=== PATIENT | male | born 1965 | race Caucasian/White ===

== ENCOUNTER 2017-09-18 21:20 | Inpatient (IN) | payer BC, OTHER ==
--- NOTE | 2017-09-18 21:41 | PDOC ---
History of Present Illness - General History Source: Patient Exam Limitations: No Limitations - History of Present Illness Initial Comments: 09/18/17 23:02 The patient is a 51 year old male, with a significant past medical history of tobacco use (1ppd), who presents to the emergency department with right sided chest pain with exertion for about 5 days. The patient states he was working outdoors in the cold on Tuesday when he developed a "painful burning" to his chest which was exacerbated with deep breathing at the time. He states the pain has been intermittent since the onset, however, exacerbated while actively doing things. He states he was prompted to come to the ED today when he developed a sharp pain to his right anterior chest after walking up the stairs in his house today. The patient's nephew at bedside reports seeing the patient walk down the steps at home clenching his right chest and states he has "never seen him like that before". The patient denies seeing a physician in many years since his PCP retired. He denies shortness of breath, headache and dizziness. He denies fever, chills, vomit, diarrhea and constipation. He denies dysuria, frequency, urgency and hematuria. Allergies: NKDA Social history: daily tobacco use (1 ppd) <Marisa Krueger - Last Filed: 09/18/17 23:02> <Karlee Ledbetter - Last Filed: 09/19/17 02:32> - General Chief Complaint: Chest Pain Stated Complaint: CHEST PAIN Time Seen by Provider: 09/18/17 21:40 Past History <Marisa Krueger - Last Filed: 09/18/17 23:02> - Suicide/Smoking/Psychosocial Hx Smoking History: Current some day smoker Number of Cigarettes Smoked Daily: 30 Information on smoking cessation initiated: No <Karlee Ledbetter - Last Filed: 09/19/17 02:32> - Past Medical History Allergies/Adverse Reactions: Allergies Allergy/AdvReac Type Severity Reaction Status Date / Time No Known Allergies Allergy Verified 09/18/17 21:36 Review of Systems - Review of Systems Able to Perform ROS?: Yes Comments:: 09/18/17 23:09 GENERAL/CONSTITUTIONAL: No fever or chills. No weakness. HEAD, EYES, EARS, NOSE AND THROAT: No change in vision. No ear pain or discharge. No sore throat. CARDIOVASCULAR: (+) right sided chest pain with exertion. No shortness of breath. RESPIRATORY: No cough, wheezing, or hemoptysis. GASTROINTESTINAL: No nausea, vomiting, diarrhea or constipation. GENITOURINARY: No dysuria, frequency, or change in urination. MUSCULOSKELETAL: No joint or muscle swelling or pain. No neck or back pain. SKIN: No rash NEUROLOGIC: No headache, vertigo, loss of consciousness, or change in strength/ sensation. ENDOCRINE: No increased thirst. No abnormal weight change. HEMATOLOGIC/LYMPHATIC: No anemia, easy bleeding, or history of blood clots. ALLERGIC/IMMUNOLOGIC: No hives or skin allergy. <Marisa Krueger - Last Filed: 09/18/17 23:02> *Physical Exam - Vital Signs Last Vital Signs Temp Pulse Resp BP Pulse Ox 152/92 98 09/18/17 21:34 09/18/17 21:34 - Physical Exam Comments: 09/18/17 23:10 GENERAL: Awake, alert, and fully oriented, in no acute distress HEAD: No signs of trauma EYES: PERRLA, EOMI, sclera anicteric, conjunctiva clear ENT: Auricles normal inspection, hearing grossly normal, nares patent, oropharynx clear without exudates. Moist mucosa NECK: Normal ROM, supple, no lymphadenopathy, JVD, or masses LUNGS: Breath sounds equal, clear to auscultation bilaterally. No wheezes, and no crackles HEART: Regular rate and rhythm, normal S1 and S2, no murmurs, rubs or gallops ABDOMEN: Soft, nontender, normoactive bowel sounds. No guarding, no rebound. No masses EXTREMITIES: Normal range of motion, no edema. No clubbing or cyanosis. No cords, erythema, or tenderness NEUROLOGICAL: Cranial nerves II through XII grossly intact. Normal speech, normal gait SKIN: Warm, Dry, normal turgor, no rashes or lesions noted. <Marisa Krueger - Last Filed: 09/18/17 23:02> - Vital Signs Last Vital Signs Temp Pulse Resp BP Pulse Ox 152/92 98 09/18/17 21:34 09/18/17 21:34 <Karlee Ledbetter - Last Filed: 09/19/17 02:32> ED Treatment Course - LABORATORY CBC & Chemistry Diagram: 09/18/17 23:22 09/18/17 23:22 <Karlee Ledbetter - Last Filed: 09/19/17 02:32> Medical Decision Making - Medical Decision Making 09/19/17 02:09 Patient Name: EDDIE MEDINA THIS IS A PRELIMINARY REPORT FROM [facility] DATE OF SERVICE: 2017-09-19 01:27:19 IMAGES: [id number] EXAM: CT ABDOMEN AND PELVIS without contrast HISTORY: Right-sided pain rule out pancreatitis COMPARISON: None. FINDINGS: No pancreatic enlargement or pancreatic/peripancreatic inflammation. No obvious abnormalities of the liver, gallbladder, spleen, pancreas, or adrenal glands. No urinary tract obstruction. There is sigmoid diverticulosis. No diverticulitis or colitis. Normal appendix visualized. No bowel obstruction free air or free fluid. Overall no acute abnormalities are noted. Small left lobe liver lesion noted probably cyst. Nonspecific groundglass pattern to the lung bases. Could be related to infectious etiology or simply dependent position or chronic airways disease. THIS DOCUMENT HAS BEEN ELECTRONICALLY SIGNED 09/19/17 02:21 Pt comes with epigastric and CP; He has no PMD and he takes no meds. His EKG is NSR with nonspecific t wave changes ?ST depressions laterally. Pt was treated with asa and metoprolol one dose. He complained of worsening CP at a point in the ER, repeat EKG was unchanged from the initial. Pt has elevated trop with normal CPK; pt has elevated lipase. States that he doesn't drink. last drink was on . Pt has ground glass appearance at the base of his lungs. He will be treated with abx. Admit to hospitalist. They can get can get GI, pulm, and cards consults as needed. <Karlee Ledbetter - Last Filed: 09/19/17 02:32> *DC/Admit/Observation/Transfer - Attestations Scribe Attestion: 09/18/17 23:10 Documentation prepared by Marisa Krueger, acting as medical biller for Karlee Ledbetter MD <Marisa Krueger - Last Filed: 09/18/17 23:02> - Discharge Dispostion Admit: Yes <Karlee Ledbetter - Last Filed: 09/19/17 02:32> Diagnosis at time of Disposition: Pancreatitis, Elevated troponin, Bilateral pneumonia - Discharge Dispostion Condition at time of disposition: Guarded
[2017-09-18] MEDS ORDERED: ASPIRIN 81 MG CHEWABLE TABLETS PO ONE (22:31)
[2017-09-18] MEDS ORDERED: METOPROLOL TARTRATE 50 MG TABLET (FP) PO ONE (22:32)
[2017-09-18] MEDS ORDERED: METOPROLOL TARTRATE 50 MG TABLET (FP) ONE (23:25)
[2017-09-18] MEDS ORDERED: ASPIRIN 325 MG TABLET ONE (23:25)
[2017-09-18 23:37] LABS: BASO % 0.5 % (0-2.0); EOS % 0.8 % (0-4.5); HEMATOCRIT 47.4 % (35.4-49); LYMPH % 15.6 % (8-40); MCH 29.1 pg (25.7-33.7); MCHC 33.8 g/dl (32.0-35.9); MEAN CELL VOLUME 86.1 fl (80-96); MEAN PLT VOLUME 8.7 fl (7.5-11.1); MONO % 7.7 % (3.8-10.2); NEUT % 75.4 % (42.8-82.8); PLATELET COUNT 260 K/MM3 (134-434); RBC 5.51 M/mm3 (4.00-5.60); RDW 13.8 % (11.9-15.9); WHITE BLOOD COUNT 19.7 K/mm3 (4.0-10.0)
[2017-09-19 00:01] LABS: ALBUMIN 3.9 g/dl (3.4-5.0); ANION GAP 10 (8-16); BLOOD UREA NITROGEN 17 mg/dL (7-18); CALCIUM 9.2 mg/dL (8.5-10.1); CHLORIDE 104 mmol/L (98-107); CO2 27 mmol/L (21-32); CREATININE 1.2 mg/dL (0.7-1.3); GLUCOSE,RANDOM 137 mg/dL (74-106); POTASSIUM 3.8 mmol/L (3.5-5.1); SGOT/AST 16 U/L (15-37); SGPT/ALT 26 U/L (12-78); SODIUM 141 mmol/L (136-145)
[2017-09-19 00:05] LABS: ALK PHOS 92 U/L (45-117); BILIRUBIN,TOTAL 0.2 mg/dL (0.2-1.0); TOT PROT 7.8 g/dl (6.4-8.2)
[2017-09-19 00:24] LABS: INR 1.01 (0.82-1.09); PROTHROMBIN TIME (PATIENT) 11.4 SEC (9.98-11.88)
[2017-09-19] MEDS ORDERED: morphine CARPU-JECT 2 MG/1 ML DISP.SYRIN IVPUSH ONE (00:48)
[2017-09-19] MEDS ORDERED: morphine CARPU-JECT 10 MG/1 ML DISP.SYRIN ONE (01:27)
[2017-09-19] MEDS ORDERED: CEFTRIAXONE 1,000 MG in DEXTROSE 5%-WATER - 50 ML IVPB ONE (02:07)
[2017-09-19] MEDS ORDERED: CEFTRIAXONE 1 GM/50 ML BAG ONE (02:27)
--- NOTE | 2017-09-19 02:35 | HP ---
CHIEF COMPLAINT: Abdominal pain , right chest pain PCP:Mark ramos HISTORY OF PRESENT ILLNESS: 51 year oldsmoker male with no PMH presented to the ED with 5 days H/o abdominal pain and right chest pain. The abdominal pain started on Tuesday while he was working, med epigastric 2/10, local not related to food , no associated with N/V/D/C. The pain assocaited with right chest pain 10/10 radiated to his right shoulder and arm bit,worsening when he lay on right side. He reports numbness and tingling in his right arm and fingers. patient denies dyspnea, orthopnea, but reports chronic cough with phillips phlegm due to smoking. Patient denies any fever, chills, dizziness, light headedness, dysuria, hematuria, frequency or urgency. ER course was notable for: (1)CXR (2)CT abdomen (3)Trop 0.09, EKG no st,t wave changes , Ceftriaxone 1 gm IVBP , Morphine 2 gm IVBP Recent Travel:denies PAST MEDICAL HISTORY: denies PAST SURGICAL HISTORY: Right Knee ACl, Tonsillectomy Social History: Smokin-2 PPD since age of 22 Alcohol:denies now, was drinking 6 pack of beer average 20 years ago Drugs: Marijuana smoking Family History: Allergies No Known Allergies Allergy (Verified 09/18/17 21:36) HOME MEDICATIONS: REVIEW OF SYSTEMS CONSTITUTIONAL: Absent: fever, chills, diaphoresis, generalized weakness, malaise, loss of appetite, weight change HEENT: Absent: rhinorrhea, nasal congestion, throat pain, throat swelling, difficulty swallowing, mouth swelling, ear pain, eye pain, visual changes CARDIOVASCULAR: Absent: right chest pain, syncope, palpitations, irregular heart rate, lightheadedness, peripheral edema RESPIRATORY: Absent: cough, shortness of breath, dyspnea with exertion, orthopnea, wheezing, stridor, hemoptysis GASTROINTESTINAL: Absent: abdominal pain, abdominal distension, nausea, vomiting, diarrhea, constipation, melena, hematochezia GENITOURINARY: Absent: dysuria, frequency, urgency, hesitancy, hematuria, flank pain, genital pain MUSCULOSKELETAL: Absent: myalgia, arthralgia, joint swelling, back pain, neck pain SKIN: Absent: rash, itching, pallor HEMATOLOGIC/IMMUNOLOGIC: Absent: easy bleeding, easy bruising, lymphadenopathy, frequent infections ENDOCRINE: Absent: unexplained weight gain, unexplained weight loss, heat intolerance, cold intolerance NEUROLOGIC: Absent: headache, focal weakness or paresthesias, dizziness, unsteady gait, seizure, mental status changes, bladder or bowel incontinence PSYCHIATRIC: Absent: anxiety, depression, suicidal or homicidal ideation, hallucinations. PHYSICAL EXAMINATION Vital Signs - 24 hr 09/18/17 21:34 Blood Pressure 152/92 O2 Sat by Pulse 98 Oximetry (%) GENERAL: Awake, alert, and fully oriented, in no acute distress. HEAD: Normal with no signs of trauma. EYES: Pupils equal, round and reactive to light, extraocular movements intact, sclera anicteric, conjunctiva clear EARS, NOSE, THROAT: Ears normal, nares patent, oropharynx clear without exudates. Moist mucous membranes. NECK: Normal range of motion, supple LUNGS: Breath sounds equal, clear to auscultation bilaterally. No wheezes, and no crackles. No accessory muscle use. HEART: Regular rate and rhythm, normal S1 and S2 without murmur, rub or gallop. ABDOMEN: Soft, nontender, not distended, normoactive bowel sounds, no guarding, no rebound, MUSCULOSKELETAL: Normal range of motion at all joints. No bony deformities or tenderness. No CVA tenderness. UPPER EXTREMITIES: 2+ pulses, warm, well-perfused. No cyanosis. No clubbing. No peripheral edema. LOWER EXTREMITIES: 2+ pulses, warm, well-perfused. No calf tenderness. No peripheral edema. NEUROLOGICAL: no focal deficit , Normal speech. Normal gait. Laboratory Results - last 24 hr 09/18/17 09/18/17 09/18/17 23:22 23:22 23:22 WBC 19.7 H RBC 5.51 Hgb 16.0 Hct 47.4 MCV 86.1 MCH 29.1 MCHC 33.8 RDW 13.8 Plt Count 260 MPV 8.7 Neutrophils % 75.4 Lymphocytes % 15.6 Monocytes % 7.7 Eosinophils % 0.8 Basophils % 0.5 PT with INR 11.40 INR 1.01 PTT (Actin FS) 32.7 Sodium Potassium Chloride Carbon Dioxide Anion Gap BUN Creatinine Creat Clearance w eGFR Random Glucose Calcium Total Bilirubin AST ALT Alkaline Phosphatase Creatine Kinase Troponin I Total Protein Albumin Lipase 09/18/17 09/18/17 23:22 23:22 WBC RBC Hgb Hct MCV MCH MCHC RDW Plt Count MPV Neutrophils % Lymphocytes % Monocytes % Eosinophils % Basophils % PT with INR INR PTT (Actin FS) Sodium 141 Potassium 3.8 Chloride 104 Carbon Dioxide 27 Anion Gap 10 BUN 17 Creatinine 1.2 Creat Clearance w eGFR > 60 Random Glucose 137 H Calcium 9.2 Total Bilirubin 0.2 AST 16 ALT 26 Alkaline Phosphatase 92 Creatine Kinase 90 Troponin I 0.09 H Total Protein 7.8 Albumin 3.9 Lipase 1662 H Current Medications Lactated Ringer's (Lactated Ringers Solution) 1,000 ml in 1,000 mls @ 200 mls/ hr IV ASDIR PALOMA CEFTRIAXONE 1 G/50 ML PREMIX (Ceftriaxone 1 Gm-D5w Bag) 50 mls @ 100 mls/hr IVPB DAILY PALOMA Morphine Sulfate (Morphine Injection -) 2 mg IVPUSH Q4H PRN PRN Reason: PAIN CBC, BMP 09/18/17 23:22 09/18/17 23:22 CT ABD/PELVIS: No acute process EKG: NSR, Non-specific St-t changes CXR: No Acute Process ASSESSMENT/PLAN: Mr. still is 51 year old male smoker with no PMHX presented to ED with 5 days H/O abdominal pain without N/V , associated with atypical chest pain was found to have Acute pancreatitis . Admitted to med-surg for further evaluation and treatment # Acute pancreatitis * elevated Lipase 1662 * CT abdomen with no pancreatic enlargement, diverticulosis without diverticulitis * NPO * IV fluids ringer lactate 200CC/hr * ABX ceftriaxone 1 gm daily * Pain control IV morphine 2 gm Q 4hr PRN # Atypical Chest pain * Unlikely [place] , most likely referral pain * Trend Trop, first one 0.09 likely demand ischemia * EKG No ST, T wave changes, repeat in AM * ASA 325 in ED * BB Metoprolol 50 mg IVBP in ED * Morphine for pain * CXR negative * CT shows chronic ground glass obaciities # Tobacco use * counselled aout smoking cessation * Nicotine patches PRN # Elevated BP * Monitor in multiple visits and condition * follow up as out patient * start on meds if continue to be elevated # FEN * IV fluids RL @ 200 CC/Hr * E: WNL * N: NPO, consider Low fat ,low residue soft diet if no pain after 48 hours and Lipase subsided # Proph * DVT : SCDs, early ambulation * GI: no need # Dispo * Admit to tele Visit type - Emergency Visit Emergency Visit: Yes ED Registration Date: 09/19/17 Care time: The patient presented to the Emergency Department on the above date and was hospitalized for further evaluation of their emergent condition. - New Patient This patient is new to me today: Yes Date on this admission: 09/19/17 - Critical Care Critical Care patient: No
--- NOTE | 2017-09-19 02:45 | PN ---
Teaching Attending Note Name of Resident: Mark Escobar ATTENDING PHYSICIAN STATEMENT I saw and evaluated the patient. I reviewed the resident's note and discussed the case with the resident. I agree with the resident's findings and plan as documented. SUBJECTIVE: 51 M with pmhx of tobacco use (1 PPD0 who presents with chest pain on the right side. States chest pain is burning in nature and worse with inspiration. Noted sharp pain as he was climbing stairs earlier today. No shortness of breath. No fevers or chills. Also wit associated abdominal pain, located on his left sided. States pain was intermittent and has since subsided. OBJECTIVE: Physical: VS: Vital Signs Period Temp Pulse Resp BP Sys/Waller Pulse Ox Last 24 Hr 152/92 98 Tem: HR: GEN: NAD, resting in bed, able to speak full sentences HEENT: NCAT, PERRL, throat without erythema or exudates CARD: RRR S1, S2 RESP: CTAB ABD: BSx4, NTD to palpation EXT: - C/C/E CBCD WBC 19.7 K/mm3 (4.0-10.0) H 09/18/17 23:22 RBC 5.51 M/mm3 (4.00-5.60) 09/18/17 23:22 Hgb 16.0 GM/dL (11.7-16.9) 09/18/17 23:22 Hct 47.4 % (35.4-49) 09/18/17 23:22 MCV 86.1 fl (80-96) 09/18/17 23:22 MCHC 33.8 g/dl (32.0-35.9) 09/18/17 23:22 RDW 13.8 % (11.9-15.9) 09/18/17 23:22 Plt Count 260 K/MM3 (134-434) 09/18/17 23:22 MPV 8.7 fl (7.5-11.1) 09/18/17 23:22 CMP Sodium 141 mmol/L (136-145) 09/18/17 23:22 Potassium 3.8 mmol/L (3.5-5.1) 09/18/17 23:22 Chloride 104 mmol/L (98-107) 09/18/17 23:22 Carbon Dioxide 27 mmol/L (21-32) 09/18/17 23:22 Anion Gap 10 (8-16) 09/18/17 23:22 BUN 17 mg/dL (7-18) 09/18/17 23:22 Creatinine 1.2 mg/dL (0.7-1.3) 09/18/17 23:22 Creat Clearance w eGFR > 60 (>60) 09/18/17 23:22 Random Glucose 137 mg/dL (74-106) H 09/18/17 23:22 Calcium 9.2 mg/dL (8.5-10.1) 09/18/17 23:22 Total Bilirubin 0.2 mg/dL (0.2-1.0) 09/18/17 23:22 AST 16 U/L (15-37) 09/18/17 23:22 ALT 26 U/L (12-78) 09/18/17 23:22 Alkaline Phosphatase 92 U/L (45-117) 09/18/17 23:22 Total Protein 7.8 g/dl (6.4-8.2) 09/18/17 23:22 Albumin 3.9 g/dl (3.4-5.0) 09/18/17 23:22 CARDIAC ENZYMES Creatine Kinase 90 IU/L (39-308) 09/18/17 23:22 Troponin I 0.09 ng/ml (0.00-0.05) H 09/18/17 23:22 CT ABD/PELVIS: No acute process EKG: NSR, Non-specific St-t changes CXR: No Acute Process ASSESSMENT AND PLAN: 51 M who presents with atypical chest pain and abdominal pain, being admitted for acute pancreatitis 1.) Acute Pancreatitis - NPO - IVF - Pain control 2.) Atypical Chest Pain - Possibly referred pain - Troponin elevation most likely due to demand - Trend trop/ekg - ASA given in ED 3.) Tobacco Use - Advised on smoking cessation 4.) DVT Ppx - Ambulates - SCDs Place in [facility]-S[facility]
[2017-09-19] MEDS ORDERED: morphine CARPU-JECT 10 MG/1 ML DISP.SYRIN IVPUSH PRN (03:37)
[2017-09-19 04:41] VITALS: BMI 36.9
[2017-09-19] MEDS ORDERED: HEPARIN NA (PORCINE) 5,000 UNITS/ML 1ML VIAL SQ SCH (06:00)
[2017-09-19 07:04] LABS: BASO % 0.4 % (0-2.0); EOS % 2.1 % (0-4.5); HEMATOCRIT 44.2 % (35.4-49); HEMOGLOBIN 14.5 GM/dL (11.7-16.9); LYMPH % 32.4 % (8-40); MCH 28.3 pg (25.7-33.7); MCHC 32.8 g/dl (32.0-35.9); MEAN CELL VOLUME 86.3 fl (80-96); MEAN PLT VOLUME 8.6 fl (7.5-11.1); MONO % 8.4 % (3.8-10.2); NEUT % 56.7 % (42.8-82.8); PLATELET COUNT 219 K/MM3 (134-434); RBC 5.12 M/mm3 (4.00-5.60); WHITE BLOOD COUNT 15.6 K/mm3 (4.0-10.0)
[2017-09-19 07:14] LABS: ALBUMIN 3.5 g/dl (3.4-5.0); ALK PHOS 77 U/L (45-117); AMYLASE 77 U/L (25-115); ANION GAP 8 (8-16); BILIRUBIN,TOTAL 0.3 mg/dL (0.2-1.0); BLOOD UREA NITROGEN 21 mg/dL (7-18); CALCIUM 8.4 mg/dL (8.5-10.1); CHLORIDE 104 mmol/L (98-107); CO2 26 mmol/L (21-32); CREATININE 0.9 mg/dL (0.7-1.3); GLUCOSE,RANDOM 86 mg/dL (74-106); LIPASE 197 U/L (73-393); SGOT/AST 13 U/L (15-37); SGPT/ALT 27 U/L (12-78); SODIUM 138 mmol/L (136-145); TOT PROT 6.7 g/dl (6.4-8.2)
[2017-09-19 08:28] LABS: CHOLESTEROL 232 mg/dL (50-200); TRIGLYCERIDES 248 mg/dL (35-160)
[2017-09-19 08:33] LABS: HDL CHOLESTEROL 35 mg/dL (40-60); LDL CHOLESTEROL (ONLY SJRH) 178 mg/dL (5-100)
[2017-09-19 08:34] LABS: AMYLASE 186 U/L (25-115)
[2017-09-19] MEDS: HEPARIN NA (PORCINE) 5,000 UNITS/ML 1ML VIAL SQ SCH ×3 (09:51→21:33)
[2017-09-19] MEDS: NICOTINE 21 MG/24 HOURS TOPICAL PATCH TD SCH (09:52)
[2017-09-19] MEDS ORDERED: CEFTRIAXONE 1 G/50 ML PREMIX 50 ML IVPB SCH (10:00)
--- NOTE | 2017-09-19 11:31 | CON.CARD ---
Consult Consult Specialty:: Cardiology Referred by:: Hospitalist Medicine Reason for Consultation:: Demand ischemia - History of Present Illness Chief Complaint: Chest pain History of Present Illness: 51 M with pmhx of tobacco use (1 PPD) presented with chest pain on the right side. States chest pain is sharp and worse with inspiration and associated left- sided abd pain all since resolved as pancreatitis improves. Denies shortness of breath, fevers or chills, nausea, emesis, near or syncope, palpitations, orthopnea, PND or LE edema, he feels hungry. - History Source History Provided By: Patient Limitations to Obtaining History: No Limitations - Alcohol/Substance Use Hx Alcohol Use: No - Smoking History Smoking history: Current some day smoker Aproximately how many cigarettes per day: 30 Home Medications - Allergies Allergies/Adverse Reactions: Allergies Allergy/AdvReac Type Severity Reaction Status Date / Time No Known Allergies Allergy Verified 09/18/17 21:36 - Home Medications Home Medications: Ambulatory Orders NK [No Known Home Medication] 09/19/17 Review of Systems - Review of Systems Cardiovascular: reports: Chest Pain Gastrointestinal: reports: Abdominal Pain Vital Signs: Vital Signs Temperature 98.0 F 09/19/17 06:00 Pulse Rate 69 09/19/17 06:00 Respiratory Rate 20 09/19/17 06:00 Blood Pressure 122/72 09/19/17 06:00 O2 Sat by Pulse Oximetry (%) 98 09/19/17 04:34 Constitutional: Yes: No Distress, Calm Neck: Yes: Supple Respiratory: Yes: Regular, CTA Bilaterally Gastrointestinal: Yes: Soft, Hypoactive Bowel Sounds Cardiovascular: Yes: Regular Rate and Rhythm JVD: No Carotid Bruit: No Heart Sounds: Yes: S1, S2 Edema: No - Other Data Labs, Other Data: CBC, BMP 09/19/17 06:10 09/19/17 06:10 INR, PTT INR 1.01 (0.82-1.09) 09/18/17 23:22 Troponin, BNP 09/18/17 09/19/17 09/19/17 23:22 05:00 06:10 Troponin I 0.09 H 0.31 H D 0.35 H Troponin, BNP 09/18/17 09/19/17 09/19/17 23:22 05:00 06:10 Troponin I 0.09 H 0.31 H D 0.[address]-T changes Imaging - Results Chest X-ray: Report Reviewed (NAD) Ultrasound: Report Reviewed (Fatty liver vs hepatocellular disease, no gallstones) Problem List - Problems (1) Atypical chest pain Code(s): R07.89 - OTHER CHEST PAIN (2) Hyperlipidemia Code(s): E78.5 - HYPERLIPIDEMIA, UNSPECIFIED Qualifiers: Hyperlipidemia type: pure hypercholesterolemia Qualified Code(s): E78.00 - Pure hypercholesterolemia, unspecified; E78.0 - Pure hypercholesterolemia (3) Elevated troponin Code(s): R74.8 - ABNORMAL LEVELS OF OTHER SERUM ENZYMES (4) Pancreatitis Code(s): K85.90 - ACUTE PANCREATITIS WITHOUT NECROSIS OR INFECTION, UNSP Qualifiers: Chronicity: acute Pancreatitis type: idiopathic Acute pancreatitis complication: no infection or necrosis Qualified Code(s): K85.00 - Idiopathic acute pancreatitis without necrosis or infection (5) Tobacco abuse Code(s): Z72.0 - TOBACCO USE (6) Demand ischemia Code(s): I24.8 - OTHER FORMS OF ACUTE ISCHEMIC HEART DISEASE (7) Leukocytosis Code(s): D72.829 - ELEVATED WHITE BLOOD CELL COUNT, UNSPECIFIED Qualifiers: Leukocytosis type: unspecified Qualified Code(s): D72.829 - Elevated white blood cell count, unspecified Assessment/Plan 1. Atypical chest pain syndrome referable to acute pancreatitis since improving 2. Demand ischemia referable to above 3. Leukocytosis referable to above 4. Tobacco abuse 5. Hyperlipidemia P:1. Trend trops to document peak, f/u echocardiogram to assess ventricular and valve fxn, check TSH 2. Start statin once pancreatitis resolves, f/u abd/pelvic CT report, bowel rest , hydration, analgesia as needed, empiric abx course, GI eval 3. Tobacco cessation, DVT prophylaxis 4. Thank you for consultative opportunity
--- NOTE | 2017-09-19 12:06 | CON.GI ---
Consult Consult Specialty:: GI - History of Present Illness History of Present Illness: A healthy 51 yom with acute onset chest pain on /off for 5 days prior to visit to ED. In ED carioac etiology was ruloed out however he was found to have elevated lipase. Admitted with Dx of acute pancreatitis. Smokes tobacco. No history of pancreatitis, alcohol abuse, gallstone disease, or biliary sludge. Denies recent exposure to ill, new medications, OTC, or herbals. Deneis dysphagia, odynophagia, melena, hematochezia, hematemesis, GERD-like symptoms. NO weight loss, jaundice. No family history of pancreattis, or any other GI- related conditions. - History Source History Provided By: Patient - Alcohol/Substance Use Hx Alcohol Use: No - Smoking History Smoking history: Current some day smoker Aproximately how many cigarettes per day: 30 Home Medications - Allergies Allergies/Adverse Reactions: Allergies Allergy/AdvReac Type Severity Reaction Status Date / Time No Known Allergies Allergy Verified 09/18/17 21:36 - Home Medications Home Medications: Ambulatory Orders NK [No Known Home Medication] 09/19/17 Family Disease History - Family Disease History Family Disease History: Other: Mother (thyroid cancer, kidney cancer) Review of Systems Findings/Remarks: Please refer to H&P, HPI Physical Exam-GI Vital Signs: Vital Signs Temperature 98.0 F 09/19/17 06:00 Pulse Rate 69 09/19/17 06:00 Respiratory Rate 20 09/19/17 06:00 Blood Pressure 122/72 09/19/17 06:00 O2 Sat by Pulse Oximetry (%) 98 09/19/17 04:34 Constitutional: Yes: Well Nourished, No Distress, Calm Eyes: Yes: Conjunctiva Clear HENT: Yes: Atraumatic Neck: Yes: Supple Cardiovascular: Yes: Regular Rate and Rhythm Respiratory: Yes: Regular Gastrointestinal Inspection: No: Ascites, Distention ...Auscultate: Yes: Normoactive Bowel Sounds ...Palpate: Yes: Soft, Splenomegaly. No: Mass, Tenderness, Tenderness, Epigastium, Tenderness, Rebound Neurological: Yes: Alert, Oriented Labs: CBC, BMP 09/19/17 06:10 09/19/17 06:10 INR, PTT INR 1.01 (0.82-1.09) 09/18/17 23:22 Laboratory Tests 09/18/17 09/18/17 09/18/17 23:22 23:22 23:22 WBC 19.7 H RBC 5.51 Hgb 16.0 Hct 47.4 MCV 86.1 MCH 29.1 MCHC 33.8 RDW 13.8 Plt Count 260 MPV 8.7 Neutrophils % 75.4 Lymphocytes % 15.6 Monocytes % 7.7 Eosinophils % 0.8 Basophils % 0.5 PT with INR 11.40 INR 1.01 PTT (Actin FS) 32.7 Sodium Potassium Chloride Carbon Dioxide Anion Gap BUN Creatinine Creat Clearance w eGFR Random Glucose Calcium Total Bilirubin AST ALT Alkaline Phosphatase Creatine Kinase Troponin I Total Protein Albumin Triglycerides Cholesterol Total LDL Cholesterol HDL Cholesterol Total Amylase Lipase 09/18/17 09/18/17 09/19/17 23:22 23:22 05:00 WBC RBC Hgb Hct MCV MCH MCHC RDW Plt Count MPV Neutrophils % Lymphocytes % Monocytes % Eosinophils % Basophils % PT with INR INR PTT (Actin FS) Sodium 141 Potassium 3.8 Chloride 104 Carbon Dioxide 27 Anion Gap 10 BUN 17 Creatinine 1.2 Creat Clearance w eGFR > 60 Random Glucose 137 H Calcium 9.2 Total Bilirubin 0.2 AST 16 ALT 26 Alkaline Phosphatase 92 Creatine Kinase 90 Troponin I 0.09 H 0.31 H D Total Protein 7.8 Albumin 3.9 Triglycerides Cholesterol Total LDL Cholesterol HDL Cholesterol Total Amylase 186 H Lipase 1662 H 09/19/17 09/19/17 09/19/17 06:10 06:10 06:10 WBC 15.6 H RBC 5.12 Hgb 14.5 Hct 44.2 MCV 86.3 MCH 28.3 MCHC 32.8 RDW 14.0 Plt Count 219 MPV 8.6 Neutrophils % 56.7 D Lymphocytes % 32.4 D Monocytes % 8.4 Eosinophils % 2.1 D Basophils % 0.4 PT with INR INR PTT (Actin FS) Sodium 138 Potassium 4.0 Chloride 104 Carbon Dioxide 26 Anion Gap 8 BUN 21 H D Creatinine 0.9 D Creat Clearance w eGFR > 60 Random Glucose 86 D Calcium 8.4 L Total Bilirubin 0.3 D AST 13 L ALT 27 Alkaline Phosphatase 77 Creatine Kinase Troponin I 0.35 H Total Protein 6.7 Albumin 3.5 Triglycerides Cancelled 248 H Cholesterol Cancelled 232 H Total LDL Cholesterol Cancelled 178 H HDL Cholesterol Cancelled 35 L Total Amylase 77 D Lipase 197 Imaging - Results Cat Scan: Report Reviewed Problem List - Problems (1) Pancreatitis Code(s): K85.90 - ACUTE PANCREATITIS WITHOUT NECROSIS OR INFECTION, UNSP Qualifiers: Chronicity: acute Pancreatitis type: idiopathic Acute pancreatitis complication: no infection or necrosis Qualified Code(s): K85.00 - Idiopathic acute pancreatitis without necrosis or infection (2) Tobacco abuse Code(s): Z72.0 - TOBACCO USE Assessment/Plan First episode of acute pancreatis in a tobacco smoker with dyslipidemia. No other apparent risk factors. Non-toxic, not in distress, or discomfort. Mildly dehydrated with leukocytosis. No other organ systems involved. US of the liver IVF NS @ 200 cc/hr Pain and antiemetics PRN CBC, CMP, dir, bili in AM CMV, EBV, IgG4 discussed with the patient
--- NOTE | 2017-09-19 12:22 | EKG ---
Test Reason : Blood Pressure : / mmHG Vent. Rate : 090 BPM Atrial Rate : 090 BPM P-R Int : 162 ms QRS Dur : 078 ms QT Int : 352 ms P-R-T Axes : 060 050 083 degrees QTc Int : 430 ms NORMAL SINUS RHYTHM NONSPECIFIC ST AND T WAVE ABNORMALITY ABNORMAL ECG NO PREVIOUS ECGS AVAILABLE Confirmed by MELISSA ALFARO, JAIME ([id number]) on 09/19/2017 12:22:01 PM Referred By: Confirmed By:JAIME TORRES MD
--- NOTE | 2017-09-19 12:44 | EKG ---
Test Reason : Blood Pressure : / mmHG Vent. Rate : 078 BPM Atrial Rate : 078 BPM P-R Int : 160 ms QRS Dur : 094 ms QT Int : 364 ms P-R-T Axes : 049 042 035 degrees QTc Int : 414 ms NORMAL SINUS RHYTHM NONSPECIFIC ST ABNORMALITY ABNORMAL ECG NO PREVIOUS ECGS AVAILABLE Confirmed by JAIME TORRES MD ([id number]) on 09/19/2017 12:44:14 PM Referred By: Confirmed By:JAIME TORRES MD
--- NOTE | 2017-09-19 15:42 | PN ---
<Walker Pickens - Last Filed: 09/19/17 15:44> Physical Exam: SUBJECTIVE: Patient seen and examined. No acute events overnight. Pt denies n/v/d/c and abdominal pain this am. He has no subjective complaints and wants to know when he can go home. He has been tolerating water well. OBJECTIVE: Vital Signs Period Temp Pulse Resp BP Sys/Waller Pulse Ox Last 24 Hr 97.5 F-98.1 F 65-84 15-20 122-160/72-92 98-98 GENERAL: The patient is awake, alert, and fully oriented, in no acute distress. HEENT: NC, AT NECK: Trachea midline, full range of motion, supple. LUNGS: Breath sounds equal, clear to auscultation bilaterally, no wheezes, no crackles, no accessory muscle use. HEART: Regular rate and rhythm, S1, S2 without murmur, rub or gallop. ABDOMEN: Soft, nontender, nondistended, normoactive bowel sounds, no guarding, no rebound, no hepatosplenomegaly, no masses. EXTREMITIES: 2+ pulses, warm, well-perfused, no edema. NEUROLOGICAL: Cranial nerves II through XII grossly intact. Normal speech, gait not observed. Laboratory Results - last 24 hr 09/18/17 09/18/17 09/18/17 23:22 23:22 23:22 WBC 19.7 H RBC 5.51 Hgb 16.0 Hct 47.4 MCV 86.1 MCH 29.1 MCHC 33.8 RDW 13.8 Plt Count 260 MPV 8.7 Neutrophils % 75.4 Lymphocytes % 15.6 Monocytes % 7.7 Eosinophils % 0.8 Basophils % 0.5 PT with INR 11.40 INR 1.01 PTT (Actin FS) 32.7 Sodium Potassium Chloride Carbon Dioxide Anion Gap BUN Creatinine Creat Clearance w eGFR Random Glucose Calcium Total Bilirubin AST ALT Alkaline Phosphatase Creatine Kinase Troponin I Total Protein Albumin Triglycerides Cholesterol Total LDL Cholesterol HDL Cholesterol Total Amylase Lipase TSH 09/18/17 09/18/17 09/19/17 23:22 23:22 05:00 WBC RBC Hgb Hct MCV MCH MCHC RDW Plt Count MPV Neutrophils % Lymphocytes % Monocytes % Eosinophils % Basophils % PT with INR INR PTT (Actin FS) Sodium 141 Potassium 3.8 Chloride 104 Carbon Dioxide 27 Anion Gap 10 BUN 17 Creatinine 1.2 Creat Clearance w eGFR > 60 Random Glucose 137 H Calcium 9.2 Total Bilirubin 0.2 AST 16 ALT 26 Alkaline Phosphatase 92 Creatine Kinase 90 Troponin I 0.09 H 0.31 H D Total Protein 7.8 Albumin 3.9 Triglycerides Cholesterol Total LDL Cholesterol HDL Cholesterol Total Amylase 186 H Lipase 1662 H TSH 2.81 09/19/17 09/19/17 09/19/17 05:10 06:10 06:10 WBC 15.6 H RBC 5.12 Hgb 14.5 Hct 44.2 MCV 86.3 MCH 28.3 MCHC 32.8 RDW 14.0 Plt Count 219 MPV 8.6 Neutrophils % 56.7 D Lymphocytes % 32.4 D Monocytes % 8.4 Eosinophils % 2.1 D Basophils % 0.4 PT with INR INR PTT (Actin FS) Sodium Potassium Chloride Carbon Dioxide Anion Gap BUN Creatinine Creat Clearance w eGFR Random Glucose Calcium Total Bilirubin AST ALT Alkaline Phosphatase Creatine Kinase Troponin I Total Protein Albumin Triglycerides Cancelled Cholesterol Cancelled Total LDL Cholesterol Cancelled HDL Cholesterol Cancelled Total Amylase Lipase TSH Cancelled 09/19/17 09/19/17 06:10 12:55 WBC RBC Hgb Hct MCV MCH MCHC RDW Plt Count MPV Neutrophils % Lymphocytes % Monocytes % Eosinophils % Basophils % PT with INR INR PTT (Actin FS) Sodium 138 Potassium 4.0 Chloride 104 Carbon Dioxide 26 Anion Gap 8 BUN 21 H D Creatinine 0.9 D Creat Clearance w eGFR > 60 Random Glucose 86 D Calcium 8.4 L Total Bilirubin 0.3 D AST 13 L ALT 27 Alkaline Phosphatase 77 Creatine Kinase Troponin I 0.35 H 0.41 H Total Protein 6.7 Albumin 3.5 Triglycerides 248 H Cholesterol 232 H Total LDL Cholesterol 178 H HDL Cholesterol 35 L Total Amylase 77 D Lipase 197 TSH Active Medications Generic Name Dose Route Start Last Admin Trade Name Freq PRN Reason Stop Dose Admin Heparin Sodium (Porcine) 5,000 unit 09/19/17 07:45 09/19/17 09:51 Heparin - SQ 5,000 unit TID PALOMA Administration Lactated Ringer's 1,000 ml in 1,000 mls @ 200 mls/hr 09/19/17 03:45 Lactated Ringers Solution IV ASDIR PALOMA Morphine Sulfate 2 mg 09/19/17 03:37 Morphine Injection - IVPUSH Q4H PRN PAIN Nicotine 21 mg 09/19/17 10:00 09/19/17 09:52 Nicoderm Patch - TD 21 mg DAILY PALOMA Administration CT abdomen/pelvis: negative for any acute abnormalities Abdomen US: mild fatty infiltration of liver vs. hepatocellular disease. No cholelithiasis or CBD dilation ASSESSMENT/PLAN: 51M w/ no PMH who presented to the ED with acute abdominal pain and right-sided chest pain, admitted for acute pancreatitis. # Acute pancreatitis- improving, etiology unclear * Lipase: 1662 --> 197 * full liquids now, advance diet as tolerated * IV fluids- ringer lactate 200CC/hr * morphine discontinued as pain is well controlled off of it * motrin for pain * per GI, f/u CMV, EBV, and IgG4 labs for etiology # Atypical Chest pain * referred pain vs. ACS * trops: 0.09 --> 0.31 --> 0.41 * EKG No ST, T wave changes, f/u repeat EKG * per cards, trend trop and f/u echo. start statin after pancreatitis resolves. * CXR: chronic degenerative changes with wedging # Tobacco use * counselled about smoking cessation * Nicotine patches PRN # Elevated BP * as high as 160/91 today * Monitor in multiple visits and condition * follow up as outpatient # FEN/ppx * IV fluids RL @ 200 CC/Hr * E: WNL * N: full liquids * DVT: heparin * GI: no need # Dispo * home pending ability to tolerate regular diet Case discussed with attending, Dr. Cuadra. -Walker Pickens MD PGY1 Visit type - Emergency Visit Emergency Visit: Yes ED Registration Date: 09/19/17 Care time: The patient presented to the Emergency Department on the above date and was hospitalized for further evaluation of their emergent condition. - New Patient This patient is new to me today: Yes Date on this admission: 09/19/17 - Critical Care Critical Care patient: No <Анна Cuadra - Last Filed: 09/19/17 18:41> Physical Exam: SUBJECTIVE: Patient seen and examined Vital Signs Temperature 98.0 F 09/19/17 13:47 Pulse Rate 65 09/19/17 13:47 Respiratory Rate 15 09/19/17 13:47 Blood Pressure 160/91 09/19/17 13:47 O2 Sat by Pulse Oximetry (%) 98 09/19/17 09:00 CBCD WBC 15.6 K/mm3 (4.0-10.0) H 09/19/17 06:10 RBC 5.12 M/mm3 (4.00-5.60) 09/19/17 06:10 Hgb 14.5 GM/dL (11.7-16.9) 09/19/17 06:10 Hct 44.2 % (35.4-49) 09/19/17 06:10 MCV 86.3 fl (80-96) 09/19/17 06:10 MCHC 32.8 g/dl (32.0-35.9) 09/19/17 06:10 RDW 14.0 % (11.9-15.9) 09/19/17 06:10 Plt Count 219 K/MM3 (134-434) 09/19/17 06:10 MPV 8.6 fl (7.5-11.1) 09/19/17 06:10 CMP Sodium 138 mmol/L (136-145) 09/19/17 06:10 Potassium 4.0 mmol/L (3.5-5.1) 09/19/17 06:10 Chloride 104 mmol/L (98-107) 09/19/17 06:10 Carbon Dioxide 26 mmol/L (21-32) 09/19/17 06:10 Anion Gap 8 (8-16) 09/19/17 06:10 BUN 21 mg/dL (7-18) H D 09/19/17 06:10 Creatinine 0.9 mg/dL (0.7-1.3) D 09/19/17 06:10 Creat Clearance w eGFR > 60 (>60) 09/19/17 06:10 Random Glucose 86 mg/dL (74-106) D 09/19/17 06:10 Calcium 8.4 mg/dL (8.5-10.1) L 09/19/17 06:10 Total Bilirubin 0.3 mg/dL (0.2-1.0) D 09/19/17 06:10 AST 13 U/L (15-37) L 09/19/17 06:10 ALT 27 U/L (12-78) 09/19/17 06:10 Alkaline Phosphatase 77 U/L (45-117) 09/19/17 06:10 Total Protein 6.7 g/dl (6.4-8.2) 09/19/17 06:10 Albumin 3.5 g/dl (3.4-5.0) 09/19/17 06:10 CARDIAC ENZYMES Creatine Kinase 90 IU/L (39-308) 09/18/17 23:22 Troponin I 0.41 ng/ml (0.00-0.05) H 09/19/17 12:55 Current Medications Generic Name Dose Route Start Last Admin Trade Name Dusty PRN Reason Stop Dose Admin Heparin Sodium (Porcine) 5,000 unit 09/19/17 07:45 09/19/17 16:03 Heparin - SQ 5,000 unit TID PALOMA Administration Lactated Ringer's 1,000 ml in 1,000 mls @ 200 mls/hr 09/19/17 03:45 09/19/17 16:03 Lactated Ringers Solution IV 200 mls/hr ASDIR PALOMA Administration Nicotine 21 mg 09/19/17 10:00 09/19/17 09:52 Nicoderm Patch - TD 21 mg DAILY PALOMA Administration Home Medications Medication Instructions Recorded NK [No Known Home Medication] 09/19/17 Patient PRESented with acute pancreatitis, and was found to have right sided chest pain. patient is comfortable now without any chest pain or shortness of breath. No Nausea or vomiting, tolerating diet full liquid diet. agree with the resident's note.
[2017-09-19] MEDS ORDERED: IBUPROFEN 600 MG TABLET (FP) PO PRN (15:48)
[2017-09-19] MEDS: LACTATED RINGERS SOLUTION 1,000 ML/1,000 ML INFUS.BAG IV SCH ×2 (16:03→20:00)
[2017-09-20] MEDS: HEPARIN NA (PORCINE) 5,000 UNITS/ML 1ML VIAL SQ SCH (05:19)
[2017-09-20 06:47] LABS: BASO % 0.5 % (0-2.0); EOS % 2.2 % (0-4.5); HEMATOCRIT 45.7 % (35.4-49); HEMOGLOBIN 15.3 GM/dL (11.7-16.9); LYMPH % 36.9 % (8-40); MCH 28.9 pg (25.7-33.7); MCHC 33.4 g/dl (32.0-35.9); MEAN CELL VOLUME 86.7 fl (80-96); MEAN PLT VOLUME 8.8 fl (7.5-11.1); MONO % 10.6 % (3.8-10.2); NEUT % 49.8 % (42.8-82.8); PLATELET COUNT 209 K/MM3 (134-434); RBC 5.28 M/mm3 (4.00-5.60); RDW 13.8 % (11.9-15.9); WHITE BLOOD COUNT 9.6 K/mm3 (4.0-10.0)
[2017-09-20 07:06] LABS: ALBUMIN 3.4 g/dl (3.4-5.0); ANION GAP 7 (8-16); BLOOD UREA NITROGEN 12 mg/dL (7-18); CHLORIDE 106 mmol/L (98-107); CO2 28 mmol/L (21-32); CREATININE 0.8 mg/dL (0.7-1.3); GLUCOSE,RANDOM 80 mg/dL (74-106); LIPASE 141 U/L (73-393); POTASSIUM 4.1 mmol/L (3.5-5.1); SGOT/AST 16 U/L (15-37); SGPT/ALT 24 U/L (12-78); SODIUM 141 mmol/L (136-145)
[2017-09-20 07:08] LABS: ALK PHOS 76 U/L (45-117); BILIRUBIN,TOTAL 0.4 mg/dL (0.2-1.0); TOT PROT 6.7 g/dl (6.4-8.2)
--- NOTE | 2017-09-20 07:10 | PN ---
Progress Note (short form) - Note Progress Note: Chief Complaint: Events noted, notes reviewed, denies any further chest pain, reports intermittent abdominal pain, denies any dyspnea History of Present Illness: Seen and examined on telemetry. Events noted, notes reviewed, denies any further chest pain, reports intermittent abdominal pain, denies any dyspnea Echocardiography revealed normal LV size and function, normal RV size and function, trace MR and TR Long discussion with the patient regarding importance of further evaluation of CAD and risk factor modification including smoking cessation Medications: Current Medications Heparin Sodium (Porcine) (Heparin -) 5,000 unit SQ TID [facility] Last Admin: 09/20/17 05:19 Dose: 5,000 unit Lactated Ringer's (Lactated Ringers Solution) 1,000 ml in 1,000 mls @ 200 mls/ hr IV ASDIR [facility] Last Admin: 09/19/17 20:00 Dose: 200 mls/hr Nicotine (Nicoderm Patch -) 21 mg TD DAILY [facility] Last Admin: 09/19/17 09:52 Dose: 21 mg Review of Systems Constitutional: Denies: Chills or Fever Cardiovascular: As noted above Respiratory: denies: Cough or Sputum Production Gastrointestinal: Denies: Nausea, Vomiting, Diarrhea, Constipation but reporting Abdominal Pain Genitourinary: No symptoms reported Neurology: No seizures or syncope Vital Signs: Last Vital Signs Temp Pulse Resp BP Pulse Ox 98.5 F 55 L 18 120/78 98 09/20/17 06:00 09/20/17 06:00 09/20/17 06:00 09/20/17 06:00 09/19/17 20:37 Intake & Output 09/17/17 09/18/17 09/19/17 09/20/17 23:59 23:59 23:59 23:59 Intake Total 2700 2700 Balance 2700 2700 Weight 226 lb 9.6 oz 229 lb Constitutional: No Distress, Calm Neck: Supple Respiratory: CTA Bilaterally Cardiovascular: S1 S2 Regular Rate and Rhythm No Murmurs Gastrointestinal: Soft Benign Soft Bowel Sounds Ext: No Edema Labs: CBC, BMP 09/20/17 05:10 09/20/17 05:10 Hepatic Panel Total Bilirubin 0.4 mg/dL (0.2-1.0) D 09/20/17 05:10 Direct Bilirubin < 0.2 mg/dL (0.0-0.2) 09/20/17 05:10 AST 16 U/L (15-37) D 09/20/17 05:10 ALT 24 U/L (12-78) 09/20/17 05:10 Alkaline Phosphatase 76 U/L (45-117) 09/20/17 05:10 Albumin 3.4 g/dl (3.4-5.0) 09/20/17 05:10 Assessment/Plan ASSESSMENT: 1. Chest pain syndrome/atypical referable to acute pancreatitis since resolved 2. CAD with evidence of demand ischemic injury referable to above 3. Hypercholesterolemia 4. Acute pancreatitis, resolving 5. Resolved leukocytosis referable to above 6. Tobacco abuse PLAN: 1. Start statin therapy once pancreatitis resolves 2. Recommend addition of B-Kate therapy pending further evaluation of CAD ( testing can be performed as outpatient) 3. Add ASA unless it is contraindicated 4. Counselled smoking/tobacco cessation Bobbi More MD
[2017-09-20 08:57] LABS: CMV IgM < 30.0 AU/mL (0.0-29.9)
--- NOTE | 2017-09-20 09:17 | PN ---
Teaching Attending Note Name of Resident: Walker Pickens ATTENDING PHYSICIAN STATEMENT I saw and evaluated the patient. I reviewed the resident's note and discussed the case with the resident. I agree with the resident's findings and plan as documented. SUBJECTIVE: Patient is feeling better, with no acute distress. No fever or chills, no shortness of breath, no further abdominal pain. OBJECTIVE: Vital Signs Temperature 98.5 F 09/20/17 06:00 Pulse Rate 55 L 09/20/17 06:00 Respiratory Rate 18 09/20/17 06:00 Blood Pressure 120/78 09/20/17 06:00 O2 Sat by Pulse Oximetry (%) 98 09/19/17 20:37 CBCD WBC 9.6 K/mm3 (4.0-10.0) D 09/20/17 05:10 RBC 5.28 M/mm3 (4.00-5.60) 09/20/17 05:10 Hgb 15.3 GM/dL (11.7-16.9) 09/20/17 05:10 Hct 45.7 % (35.4-49) 09/20/17 05:10 MCV 86.7 fl (80-96) 09/20/17 05:10 MCHC 33.4 g/dl (32.0-35.9) 09/20/17 05:10 RDW 13.8 % (11.9-15.9) 09/20/17 05:10 Plt Count 209 K/MM3 (134-434) 09/20/17 05:10 MPV 8.8 fl (7.5-11.1) 09/20/17 05:10 CMP Sodium 141 mmol/L (136-145) 09/20/17 05:10 Potassium 4.1 mmol/L (3.5-5.1) 09/20/17 05:10 Chloride 106 mmol/L (98-107) 09/20/17 05:10 Carbon Dioxide 28 mmol/L (21-32) 09/20/17 05:10 Anion Gap 7 (8-16) L 09/20/17 05:10 BUN 12 mg/dL (7-18) D 09/20/17 05:10 Creatinine 0.8 mg/dL (0.7-1.3) 09/20/17 05:10 Creat Clearance w eGFR > 60 (>60) 09/20/17 05:10 Random Glucose 80 mg/dL (74-106) 09/20/17 05:10 Calcium 9.0 mg/dL (8.5-10.1) 09/20/17 05:10 Total Bilirubin 0.4 mg/dL (0.2-1.0) D 09/20/17 05:10 AST 16 U/L (15-37) D 09/20/17 05:10 ALT 24 U/L (12-78) 09/20/17 05:10 Alkaline Phosphatase 76 U/L (45-117) 09/20/17 05:10 Total Protein 6.7 g/dl (6.4-8.2) 09/20/17 05:10 Albumin 3.4 g/dl (3.4-5.0) 09/20/17 05:10 CARDIAC ENZYMES Creatine Kinase 90 IU/L (39-308) 09/18/17 23:22 Troponin I 0.22 ng/ml (0.00-0.05) H D 09/20/17 05:10 Current Medications Generic Name Dose Route Start Last Admin Trade Name Duglasq PRN Reason Stop Dose Admin Heparin Sodium (Porcine) 5,000 unit 09/19/17 07:45 09/20/17 05:19 Heparin - SQ 5,000 unit TID PALOMA Administration Lactated Ringer's 1,000 ml in 1,000 mls @ 200 mls/hr 09/19/17 03:45 09/19/17 20:00 Lactated Ringers Solution IV 200 mls/hr ASDIR PALOMA Administration Metoprolol Succinate 25 mg 09/20/17 10:00 Toprol Xl - PO DAILY PALOMA Nicotine 21 mg 09/19/17 10:00 09/19/17 09:52 Nicoderm Patch - TD 21 mg DAILY PALOMA Administration Home Medications Medication Instructions Recorded NK [No Known Home Medication] 09/19/17 Laboratory Tests 09/18/17 09/19/17 09/19/17 23:22 06:10 12:13 INR 1.01 Troponin I 0.35 H Triglycerides 248 H Cholesterol 232 H Total LDL Cholesterol 178 H HDL Cholesterol 35 L IgG4 Pending CMV IgM Ab < 30.0 EBV Nuclear Antigen Pending 09/19/17 09/20/17 12:55 05:10 INR Troponin I 0.41 H 0.22 H D Triglycerides Cholesterol Total LDL Cholesterol HDL Cholesterol IgG4 CMV IgM Ab EBV Nuclear Antigen PE: per resident's note CXR: chronic degenerative changes CT abdomen/pelvis: negative for any acute abnormalities Abdomen US: mild fatty infiltration of liver vs. hepatocellular disease. No cholelithiasis or CBD dilation ASSESSMENT/PLAN: 51M w/ no PMH who presented to the ED with acute abdominal pain and right-sided chest pain, admitted for acute pancreatitis. # Acute pancreatitis- due to his elevated lipid; Lipase: 1662 --> 197; per GI, f/u CMV, EBV, and IgG4 labs for etiology will discharge the patient on Lovaza, lipitor since has elevated Tgs and LDL and Low HDL # Atypical Chest pain ; will give him Rx for BB, ecotrin, lipitor ; trops: 0.09 --> 0.31 --> 0.[address], T wave changes, f/u repeat EKG ; as pe cardio stress test as an outpatient ; follow with Cardio Dr.Toni Hunter # Tobacco use counselled about smoking cessation # HTN controlled now, presented with Elevated BP 160/91 will prescribe BB to go home with. patient is being discharged today
[2017-09-20] MEDS ORDERED: METOPROLOL SUCCINATE 25 MG TAB.SR.24H (FP) PO SCH (10:00)
[2017-09-20] MEDS ORDERED: ASPIRIN COATED 81 MG TABLET.EC PO SCH (10:00)
[2017-09-20] MEDS ORDERED: OMEGA-3 ACID ETHYL ESTERS (FATTY-ACIDS) 1 GM CAPSULE (FP) PO SCH (10:00)
[2017-09-20] MEDS: NICOTINE 21 MG/24 HOURS TOPICAL PATCH TD SCH (11:46)
[2017-09-20] MEDS: LACTATED RINGERS SOLUTION 1,000 ML/1,000 ML INFUS.BAG IV SCH (11:47)
[2017-09-20 13:06] VITALS: BP 141/80; PULSE 74; TEMP 98.2
--- NOTE | 2017-09-20 17:32 | DS ---
Physical Exam: SUBJECTIVE: Patient seen and examined OBJECTIVE: Vital Signs Period Temp Pulse Resp BP Sys/Waller Pulse Ox Last 24 Hr 98.2 F-98.8 F 55-74 14-18 120-141/75-90 98-98 PHYSICAL EXAM GENERAL: The patient is awake, alert, and fully oriented, in no acute distress. HEAD: Normal with no signs of trauma. EYES: PERRL, extraocular movements intact, sclera anicteric, conjunctiva clear. ENT: Ears normal, nares patent, oropharynx clear without exudates, moist mucous membranes. NECK: Trachea midline, full range of motion, supple. LUNGS: Breath sounds equal, clear to auscultation bilaterally, no wheezes, no crackles, no accessory muscle use. HEART: Regular rate and rhythm, S1, S2 without murmur, rub or gallop. ABDOMEN: Soft, nontender, nondistended, normoactive bowel sounds, no guarding, no rebound, no hepatosplenomegaly, no masses. EXTREMITIES: 2+ pulses, warm, well-perfused, no edema. NEUROLOGICAL: Cranial nerves II through XII grossly intact. Normal speech, gait not observed. PSYCH: Normal mood, normal affect. SKIN: Warm, dry, normal turgor, no rashes or lesions noted. LABS Laboratory Results - last 24 hr 09/19/17 09/20/17 09/20/17 12:13 05:10 05:10 WBC RBC Hgb Hct MCV MCH MCHC RDW Plt Count MPV Neutrophils % Lymphocytes % Monocytes % Eosinophils % Basophils % Sodium Potassium Chloride Carbon Dioxide Anion Gap BUN Creatinine Creat Clearance w eGFR Random Glucose Hemoglobin A1c % 6.0 Calcium Total Bilirubin Direct Bilirubin AST ALT Alkaline Phosphatase Troponin I 0.22 H D Total Protein Albumin Lipase CMV IgM Ab < 30.0 EBV Nuclear Antigen >600.0 H 09/20/17 09/20/17 09/20/17 05:10 05:10 05:10 WBC 9.6 D RBC 5.28 Hgb 15.3 Hct 45.7 MCV 86.7 MCH 28.9 MCHC 33.4 RDW 13.8 Plt Count 209 MPV 8.8 Neutrophils % 49.8 Lymphocytes % 36.9 Monocytes % 10.6 H Eosinophils % 2.2 Basophils % 0.5 Sodium 141 Potassium 4.1 Chloride 106 Carbon Dioxide 28 Anion Gap 7 L BUN 12 D Creatinine 0.8 Creat Clearance w eGFR > 60 Random Glucose 80 Hemoglobin A1c % Calcium 9.0 Total Bilirubin 0.4 D Direct Bilirubin < 0.2 AST 16 D ALT 24 Alkaline Phosphatase 76 Troponin I Total Protein 6.7 Albumin 3.4 Lipase 141 CMV IgM Ab EBV Nuclear Antigen HOSPITAL COURSE: Date of Admission:09/19/17 Date of Discharge: 09/20/17 Discharge Summary Reason For Visit: PANCREATITIS,ELEVATED TROPONIN LEVEL,BILATERAL Condition: Stable - Instructions Diet, Activity, Other Instructions: You presented with abdominal pain and were found to have acute pancreatitis. You were treated with IV fluids, pain control, and we advanced your diet as tolerated. The cause for your pancreatitis as of now is unknown. You were also found to have an elevated troponin which is a marker of heart function and coronary artery disease. Finally, your triglyceride levels and cholesterol levels were found to be elevated. Medications: 1. Start taking aspirin 81mg once a day 2. Start taking lipitor 20mg once a day 3. Start taking lovaza 2g twice a day 4. Start taking toprol 25mg once a day Follow-ups: 1. Follow up with your PCP within one week. If you don't have one, we have referred you to Dr. Shen. 2. Follow up with GI, Dr. Foster, in one week regarding your pancreatitis. 3. Follow up with cardiology, Dr. More, within two weeks about your heart function 4. Follow up with urology, Dr. Mendoza, as the CT scan found a borderline enlarged prostate gland. You will likely get a PSA level and prostate exam. Recommendations: 1. Stop smoking 2. Start eating a low fat/low cholesterol/low carbohydrate diet If you develop any fevers, chills, chest pain, shortness of breath, abdominal pain, nausea, emesis, or any other concerning symptom, return to the ED. Referrals: Valerio Shen MD [Staff Physician] - Bobbi More MD [Staff Physician] - Benito Foster MD [Staff Physician] - Keiko Mendoza MD [Staff Physician] - Disposition: HOME - Home Medications Comprehensive Discharge Medication List: Ambulatory Orders Aspirin Coated [Ecotrin -] 81 mg PO DAILY #30 tablet.ec 09/20/17 Atorvastatin Ca [Lipitor] 20 mg PO HS #30 tablet 09/20/17 Metoprolol Succinate [Toprol XL -] 25 mg PO DAILY #30 tab.sr.24h 09/20/17 [place]illy-3 Acid Ethyl Esters [Lovaza -] 2 gm PO BID #60 cap 09/20/17
[2017-09-20] MEDS ORDERED: ATORVASTATIN CA 20 MG TABLET (FP) PO SCH (22:00)
== END 2017-09-20 12:15 | disposition home or self-care (01) | DRG 439 ==
LOC: JER 21:20 → JERBED 09-19 02:33 → J2W 09-19 04:34
PROVIDERS: ADMIT Internal Medicine; ATTEND Internal Medicine
DX: K85.90 Acute pancreatitis without necrosis or infection, unspecified (principal); I24.8 Other forms of acute ischemic heart disease; R07.89 Other chest pain; I10 Essential (primary) hypertension; Z72.0 Tobacco use; I25.10 Atherosclerotic heart disease of native coronary artery without angina pectoris; D72.829 Elevated white blood cell count, unspecified; E78.5 Hyperlipidemia, unspecified
CPT/HCPCS: 36415; 71046-TC; 74176-TC; 76705-TC; 80053; 80061; 82150; 82248; 82550; 82787; 83036; 83690; 83721; 84443; 84484; 85025; 85610; 85730; 86645; 86664; 87040; 93005; 93010; 93306-TC; 99283-25; J1644